=== PATIENT | female | born 1980 | race Caucasian/White ===

== ENCOUNTER 2017-04-10 06:49 | Outpatient (CLI) ==
--- NOTE | 2017-04-10 08:14 | CT ---
EXAM: CT ABDOMEN AND PELVIS HISTORY: Abdominal pain and weight loss TECHNIQUE: CT abdomen and pelvis with intravenous contrast. Images were reconstructed using 5 mm sec tion thickness. Reformations were prepared. 75 mL Omnipaque. COMPARISON: None FINDINGS: No focal hepatic or splenic lesions. Gallbladder is absent. Pancreas, adrenal glands, kidneys and a bdominal aorta appear normal. Stomach appears normal. Unremarkable appendix. Questionable scattered early diverticulosis of the co michelle without evidence of diverticulitis. Bowel gas pattern is nonobstructive. There may be mild muco micheline hyperenhancement and thickening of the small bowel. Uterus and urinary bladder appear normal. N o ascites. Ventral abdominal wall is intact without herniation. Bones appear appropriate for age. Lung bases a re clear. There is no pneumoperitoneum. IMPRESSION: Findings which can be consistent with early / mild enteritis. Consider inflammatory or infectious etiologies. Bowel gas pattern remains within normal limits.
== END 2017-04-10 06:50 | disposition home or self-care (01) ==
LOC: RAD 06:49
PROVIDERS: ATTEND Internal Medicine
DX: R10.9 Unspecified abdominal pain (principal); R63.4 Abnormal weight loss; R19.7 Diarrhea, unspecified
CPT/HCPCS: 36415; 82565